=== PATIENT | male | born 1985 | race Caucasian/White ===

== ENCOUNTER 2016-09-27 11:09 | Inpatient (IN) | payer OTHER ==
[~2016-09-27] VITALS: Ht 175.3 cm; Wt 56.8 kg
[2016-09-27 13:40] VITALS: BMI 18.5
[2016-09-27 13:42] VITALS: BP 122/79; PULSE 70; TEMP 36.6; BMI 18.5
[2016-09-27 14:51] VITALS: BMI 18.5
[2016-09-27 14:52] VITALS: BP 122/79; TEMP 36.6
[2016-09-27 14:59] VITALS: Ht 175.3 cm; Wt 56.8 kg
[2016-09-27] MEDS ORDERED: NURSING VERBAL MED ORDER ONE (15:00)
[2016-09-27] MEDS ORDERED: OXYCODONE/ACETAMINOPHEN 5-325 TAB PO PRN (15:15)
[2016-09-27 15:19] VITALS: BP 125/78; PULSE 67; TEMP 36.5; O2SAT 99
[2016-09-27] MEDS ORDERED: MoRPHine SULFATE 2 MG/ML CARP IV PRN (16:30)
--- NOTE | 2016-09-27 17:24 | HISTORY & PHYSICAL EXAMINATION ---
DATE OF ADMISSION: 09/27/2016 REASON FOR ADMISSION: Spontaneous right pneumothorax with prolonged air leak. 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 States he averages about a pack a day. The patient noted pain on 09/24/2016 in his right chest, it awakened him from sleep. He went to the Emergency Room and was found out 100% pneumothorax and a chest tube was placed. He has a large persistent air leak and he was transferred up to my service from [facility] by Dr. Denis. He was on room air with good saturations. He does have a significant air leak. His x-ray shows expansion of his lung. I met the patient and his family at the bedside and we had a long discussion. I believe he needs a thoracoscopic evaluation. We had a long talk about this and about his cigarette smoking. We will plan on taking him to the operating room tomorrow for a thoracoscopic evaluation, bleb resection, possible pleurectomy. PAST MEDICAL HISTORY: 1. Cigarette smoking (at least 16-pack years). 2. Right cholesteatoma as a child. PAST SURGICAL HISTORY: 1. Resection of cholesteatoma right postauricular area as a child. MEDICATIONS: None. ALLERGIES: No known drug allergies. SOCIAL HISTORY: The patient lives with his girlfriend. They actually live with his grandmother who is in her 90s. The patient smokes a pack of cigarettes a day. States he really does not use ETOH or drugs. 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 FAMILY MEDICAL HISTORY: The patient's grandmother is in her 90s and is "slowing down." His parents are in their 50s and are healthy. He has siblings who are healthy. He has no children. REVIEW OF SYSTEMS: He states his weight has been the same. He is a very thin individual. This is the first time that has ever happened to him. He was short of breath when it occurred. He denies night sweats, fevers or productive cough. He had some chest pain on the right. Denies palpitations. He has had no GI or complaints. His teeth are in very poor repair. He has had no wound breakdowns. He does have decreased hearing in his right ear, but this has been chronic since his cholesteatoma resection. He has had no neurologic events. PHYSICAL EXAMINATION: GENERAL: 5 feet 9 inch, 125 pounds white male. He is awake and alert. HEENT: Extraocular movements are intact. He does have a body piercing in his left eye and his ear and his left lower lip. There is no evidence of infection. He has no nasolabial flattening. He has no nasal polyps. His teeth are in horrible repair. He has a few teeth left and they all have caries. Tongue is midline. NECK: Supple. I detect no supraclavicular or cervical lymphadenopathy, or neck vein distention. LUNGS: He has got some wheezing on the right. He is moving air well bilaterally. HEART: Regular rate and rhythm in his heart. ABDOMEN: Flat, soft, nontender. No evidence of aortic aneurysm or hepatomegaly or ascites. He has got good pedal pulses. He has no peripheral edema. He has no joint effusions. NEUROLOGIC: He is completely intact. DATA: I reviewed his chest x-ray, he had 100% pneumothorax when he came to [facility] on 09/24/2016. He has full expansion with his chest tube and has a large air leak. ASSESSMENT AND PLAN: Persistent air leak. We will take the patient to the operating room tomorrow for a thoracoscopic evaluation. I am going to check a CT scan tonight. CANDY
[2016-09-27 17:48] LABS: HEMATOCRIT 46.9 % (42-52); MEAN CELL VOLUME 87.2 fL (80-100); MEAN CORPUSCULAR HEMOGLOBIN 29.9 pg (25-34); MEAN CORPUSCULAR HGB CONC 34.3 g/dl (32-36); MEAN PLATELET VOLUME 9.5 fL (7.4-10.4); PLATELET COUNT 257 K/uL (130-400); RED BLOOD COUNT 5.38 M/uL (4.7-6.1); WHITE BLOOD COUNT 10.25 K/uL (4.8-10.8)
[2016-09-27 18:04] LABS: PROTHROMBIN TIME (PATIENT) 10.3 SECONDS (9.0-12.0)
[2016-09-27 18:13] LABS: CREATININE 0.97 mg/dl (0.60-1.40)
[2016-09-27] MEDS ORDERED: ENOXAPARIN 40 MG/0.4 ML SYR SQ SCH (18:30)
[2016-09-27 18:59] VITALS: O2SAT 99
[2016-09-27] MEDS: OXYCODONE/ACETAMINOPHEN 5-325 TAB PO PRN (19:36)
--- NOTE | 2016-09-27 21:02 | DIAGNOSTIC IMAGING REPORT ---
CHEST CT WITHOUT CONTRAST CT DOSE: 222.51 mGy.cm HISTORY: spontaneous right pneumothorax - pre-op TECHNIQUE: Multiaxial CT images of the chest were performed without contrast. COMPARISON: None. FINDINGS: Small right-sided pneumothorax. Right-sided chest tube terminates within the upper lung zone appears to be in good position. Small amount of right chest wall subcutaneous emphysema. Multiple biapical blebs seen within the lung apices. Dominant right apical bleb measures 1.4 cm and the dominant left apical bleb measures 1.8 cm. Multiple additional peripheral blebs seen within the bilateral upper lobes. The central airways are patent. No fractures within the visualized osseous structures. No mediastinal or hilar lymphadenopathy. There may be trace pneumomediastinum adjacent to the distal esophagus. The visualized liver and spleen are unremarkable. The heart is normal in size. Right lower lobe posterior densities favor atelectasis. IMPRESSION: 1. Small right-sided pneumothorax. The right chest tube terminates in the upper lung zone and appears in good position. 2. Multiple blebs seen throughout the bilateral upper lobes. 3. There is a trace amount of pneumomediastinum adjacent to the distal esophagus. This is likely due to the pneumothorax. Electronically signed by: Brian Allan M.D. 09/27/2016 5:26 PM Dictated Date/Time: 09/27/2016 5:21 PM
[2016-09-27 23:25] VITALS: BP 122/73; PULSE 64; TEMP 36.5; O2SAT 99
[2016-09-28] VITALS (8 sets, daily range): BP systolic 111–126; BP diastolic 74–83; PULSE 64–93; TEMP 36.3–36.6; O2SAT 94–100
[2016-09-28] MEDS: OXYCODONE/ACETAMINOPHEN 5-325 TAB PO PRN ×3 (00:12→23:14)
[2016-09-28] MEDS: D5W AND 1/2NSS 1,000 ML IV SCH ×2 (00:12→10:21)
--- NOTE | 2016-09-28 07:52 | History & Physical Bridge Note ---
H&P Re-Evaluation Bridge Note: I have examined the patient, reviewed the History & Physical and in the interval since the performance of the History & Physical I have noted the following changes of clinical significance: I had a long talk with the patient and his significant other. The CT Scan shows localized apical blebs. He should respond well to an apical wedge resection. Risks and benefits discussed. Will take to OR later today.
[2016-09-28] MEDS ORDERED: KETOROLAC TROMETHAMINE 30 MG/ML VIAL IV PRN (08:00)
[2016-09-28] MEDS ORDERED: ONDANSETRON INJ 2 MG/ML 2 ML VIAL IV PRN (09:45)
[2016-09-28] MEDS ORDERED: FENTANYL CITRATE INJ 50 MCG/1 ML 2 ML VIAL IV PRN (09:45)
[2016-09-28] MEDS ORDERED: EpHEDrine SULFATE INJ 50 MG/ML AMP IV PRN (09:45)
[2016-09-28] MEDS ORDERED: HYDROmorphone INJ 1 MG/ML SYR IV PRN (09:45)
[2016-09-28] MEDS ORDERED: ATROPINE SULFATE 0.1 MG/ML 5ML SYR IV PRN (09:45)
[2016-09-28] MEDS ORDERED: ROCURONIUM BROMIDE 10 MG/ML 5 ML VIAL ONE (12:35)
[2016-09-28] MEDS ORDERED: DEXAMETHASONE SOD INJ 4 MG/ML VIAL ONE (12:35)
[2016-09-28] MEDS ORDERED: LIDOCAINE HCL 2% 2 ML VIAL (20MG/ML) ONE (12:35)
[2016-09-28] MEDS ORDERED: GLYCOPYRROLATE INJ 0.2 MG/ML VIAL ONE (12:35)
[2016-09-28] MEDS ORDERED: PROPOFOL IV EMULSION 10 MG/ML 20 ML VIAL IV ONE (12:35)
[2016-09-28] MEDS ORDERED: NEOSTIGMINE METHYLSULFATE 5 MG/5 ML SYR ONE (12:35)
[2016-09-28] MEDS ORDERED: ONDANSETRON INJ 2 MG/ML 2 ML VIAL ONE (12:35)
[2016-09-28] MEDS ORDERED: FENTANYL CITRATE INJ 50 MCG/1 ML 2 ML VIAL ONE ×2 (12:36→13:59)
[2016-09-28] MEDS ORDERED: MIDAZOLAM HCL 1 MG/ML 2ML VIAL ONE (12:36)
[2016-09-28] MEDS ORDERED: BUPIVACAINE LIPOSOME 1/3% 266 MG/20 ML VIAL INFIL ONE (12:42)
[2016-09-28] MEDS ORDERED: SODIUM CHLORIDE 0.9% PF 50 ML VIAL ONE (12:42)
--- NOTE | 2016-09-28 15:15 | Anesthesiology Progress Note ---
Anesthesia Post Op Note Date & Time Sep 28, 2016 at 15:15 Vital Signs Pain Intensity: 2 Vital Signs Past 12 Hours Date Time Temp Pulse Resp B/P (MAP) Pulse Ox O2 Delivery O2 Flow Rate FiO2 09/28/16 15:11 74 14 09/28/16 15:11 74 14 111/74 94 09/28/16 15:06 63 12 112/68 95 09/28/16 15:06 62 09/28/16 15:01 67 15 113/70 95 09/28/16 15:01 68 15 09/28/16 15:00 112/67 09/28/16 15:00 Nasal Cannula 4 09/28/16 14:46 36.5 72 16 114/70 97 Mask 10 09/28/16 12:58 36.4 74 16 126/83 (97) 98 Room Air 09/28/16 07:35 Room Air 09/28/16 07:23 36.5 64 16 120/74 (89) 96 Room Air Notes Mental Status: alert / awake / arousable, participated in evaluation Pt Amnestic to Procedure: Yes Nausea / Vomiting: adequately controlled Pain: adequately controlled Airway Patency, RR, SpO2: stable & adequate BP & HR: stable & adequate Hydration State: stable & adequate Anesthetic Complications: no major complications apparent
--- NOTE | 2016-09-28 15:17 | [facility] Operative Report ---
Operative Report Operative Date Sep 28, 2016. Pre-Operative Diagnosis Spontaneous right pnemothorax Post-Operative Diagnosis Same Procedure(s) Performed Thoracoscopic right apical bleb resection Surgeon Dr. Langley Transplant Rn Surgeon(s) none Estimated Blood Loss 5 ML Findings Apical Blebs Specimens a. right upper lobe apex -sent fresh 1213 Drains One 16 nepalese chest tube Anesthesia GA Disposition Recovery Room / PACU Indications Spontaneous right pneumothorax with persistent air leak Description of Procedure Patient was brought the operating room and general anesthesia was induced at the single-lumen endotracheal tube placed. Patient is placed in the left lateral decubitus position. The right chest tube was removed and very low volumes were used is on the ventilator. Patient is prepped and draped in sterile fashion. After appropriate prophylactic antibiotics in August given an appropriate time-out was called a 5 millimeter trocar was placed to the prior chest tube site. A 5 millimeters 0 degree scope was placed through this trocar. There were no adhesions. It was obvious the apex had bullous disease. Another 5 millimeter trocar was placed posteriorly below the tip of the scapula. A 12 millimeter port was placed at about the 7th interspace anteriorly. With the use of graspers all 3 lobes were closely inspected. The fissures were complete. There were no blebs noted in the superior segment of the lower lobe. There was a ruptured bleb where there was obvious air leaking. With the use of Endo- ELINA staplers and generous wedge resection of the apex was performed. The chest was filled with warm saline and patient was placed in the Trendelenburg position. There was no air leak noted. 266 milligrams of liposomal bupivacaine was reconstituted with 60 cc total of normal saline. Under thoracoscopic guidance an intracostal block was performed by injecting above each rib from the 2nd to 11th rib medially. A 16 Pakistani chest tube was placed in the anterior thoracoscopy port and the muscle closed around it with 0 Vicryl. Two 0 silk was used to hold this in place. The 2 ports were then closed with 0 Vicryl x1 state she each to close the muscle layer. Four micro is uses close the skin of each incision. Antimicrobial dressings were placed. Patient was awakened without difficulty and transported to the post anesthesia care unit in stable condition. Blood loss was negligible. I attest to the content of the Intraoperative Record and any orders documented therein. Any exceptions are noted below.
--- NOTE | 2016-09-28 15:57 | DIAGNOSTIC IMAGING REPORT ---
CHEST ONE VIEW PORTABLE CLINICAL HISTORY: s/p VATS COMPARISON STUDY: Chest CT September 27, 2016. FINDINGS: Interval postoperative findings are noted within the right lung apex. A large right pneumothorax is noted. This likely occupies at least 50% of the right hemithorax. Superior pleural separation is 8.4 cm. Right chest tube is in place. Subcutaneous gas within the right chest wall is noted. IMPRESSION: Large right pneumothorax. Right chest tube in place. Interval postoperative findings within the right lung apex. Findings discussed with Dr. Langley at time of dictation. Electronically signed by: Bebo Berry M.D. 09/28/2016 3:56 PM Dictated Date/Time: 09/28/2016 3:27 PM
[2016-09-28] MEDS ORDERED: LIDOCAINE HCL 1% 20 ML VIAL ONE (17:44)
--- NOTE | 2016-09-28 18:11 | Surgery Progress Note ---
Surgery Progress Note Date of Service Sep 28, 2016. Objective Vital Signs: Date Time Temp Pulse Resp B/P (MAP) Pulse Ox O2 Delivery O2 Flow Rate FiO2 09/28/16 17:22 36.3 92 16 122/78 (93) 95 Nasal Cannula 4.0 09/28/16 16:20 94 Nasal Cannula 4.0 09/28/16 16:08 76 16 95 09/28/16 16:08 78 16 09/28/16 16:06 106/73 09/28/16 16:03 76 18 95 09/28/16 16:03 77 18 09/28/16 16:01 107/70 09/28/16 15:58 71 10 96 09/28/16 15:58 71 10 09/28/16 15:56 105/72 09/28/16 15:53 77 10 09/28/16 15:53 79 10 95 09/28/16 15:51 112/69 09/28/16 15:48 64 15 09/28/16 15:48 63 15 96 09/28/16 15:46 111/70 09/28/16 15:43 66 15 09/28/16 15:43 66 15 96 09/28/16 15:41 108/66 09/28/16 15:38 64 13 09/28/16 15:38 65 13 95 09/28/16 15:36 109/70 09/28/16 15:33 65 16 95 09/28/16 15:33 65 09/28/16 15:31 113/63 09/28/16 15:28 66 13 95 09/28/16 15:28 65 13 09/28/16 15:27 36.5 09/28/16 15:26 108/70 09/28/16 15:22 67 16 95 09/28/16 15:22 68 16 09/28/16 15:21 102/77 09/28/16 15:17 86 13 09/28/16 15:17 85 13 94 09/28/16 15:16 110/67 09/28/16 15:12 69 14 09/28/16 15:12 68 14 94 09/28/16 15:11 74 14 09/28/16 15:11 74 14 111/74 94 09/28/16 15:06 63 12 112/68 95 09/28/16 15:06 62 09/28/16 15:01 67 15 113/70 95 09/28/16 15:01 68 15 09/28/16 15:00 112/67 09/28/16 15:00 Nasal Cannula 4 09/28/16 14:46 36.5 72 16 114/70 97 Mask 10 09/28/16 12:58 36.4 74 16 126/83 (97) 98 Room Air 09/28/16 07:35 Room Air 09/28/16 07:23 36.5 64 16 120/74 (89) 96 Room Air 09/28/16 00:06 Room Air 09/27/16 23:25 36.5 64 16 122/73 (89) 99 Room Air 09/27/16 18:59 99 Room Air Patient's chest tube dislodged. I re-prepped and under sterile conditions, re- inserted chest tube. He tolerated well. Resutured. Will recheck CXR in am.
[2016-09-28] MEDS ORDERED: NURSING VERBAL MED ORDER ONE (18:45)
[2016-09-29 03:02] VITALS: BP 106/56; PULSE 69; TEMP 36.3; O2SAT 96
[2016-09-29 07:09] VITALS: BP 126/61; PULSE 78; TEMP 36.9; O2SAT 99
[2016-09-29 07:45] VITALS: O2SAT 99
[2016-09-29] MEDS: OXYCODONE/ACETAMINOPHEN 5-325 TAB PO PRN ×2 (07:53→12:52)
--- NOTE | 2016-09-29 08:11 | Anesthesiology Progress Note ---
Anesthesia Post Op Note Date & Time Sep 29, 2016 at 08:10 Vital Signs Vital Signs Past 12 Hours Date Time Temp Pulse Resp B/P (MAP) Pulse Ox O2 Delivery O2 Flow Rate FiO2 09/29/16 07:45 99 Room Air 09/29/16 07:09 36.9 78 16 126/61 (82) 99 2.0 09/29/16 03:02 36.3 69 16 106/56 (73) 96 Nasal Cannula 2.0 09/28/16 23:20 Nasal Cannula 2.0 09/28/16 23:00 36.6 90 16 111/80 (90) 98 Room Air Notes Mental Status: alert / awake / arousable, participated in evaluation Pt Amnestic to Procedure: Yes Nausea / Vomiting: adequately controlled Pain: adequately controlled Airway Patency, RR, SpO2: stable & adequate BP & HR: stable & adequate Hydration State: stable & adequate Anesthetic Complications: no major complications apparent
--- NOTE | 2016-09-29 08:58 | DIAGNOSTIC IMAGING REPORT ---
CHEST ONE VIEW PORTABLE CLINICAL HISTORY: s/p VATS COMPARISON STUDY: Chest radiograph September 28, 2016. FINDINGS: A chest tube projects over the mid to lower right hemithorax. The tip of the chest tube appears to project over the lateral right chest wall. There is subcutaneous gas within the right chest wall and lower neck. A moderate right pneumothorax has significantly decreased in size since exam of September 28, 2016. There has been interval development of a 3.9 cm subpleural right apical opacity adjacent to the suture line. Left lung is clear. Cardiac size is normal. IMPRESSION: 1. Tip of right-sided chest tube projects over the lateral right chest wall. The tip is extrathoracic. 2. Moderate right pneumothorax which has significantly decreased in size since prior exam. 3. Interval development of a 3.9 cm right apical subpleural opacity adjacent to the suture line which is likely postsurgical. Electronically signed by: Bebo Berry M.D. 09/29/2016 8:57 AM Dictated Date/Time: 09/29/2016 7:35 AM
[2016-09-29 12:00] VITALS: BP 136/73; PULSE 74; TEMP 36.7; O2SAT 98
[2016-09-29] MEDS ORDERED: ULT50X PO (13:49)
--- NOTE | 2016-09-29 13:52 | DIAGNOSTIC IMAGING REPORT ---
SINGLE VIEW CHEST CLINICAL HISTORY: Status post chest tube removal. FINDINGS: An AP, portable, upright chest radiograph is compared to study performed earlier the same day 09/29/2016. Correlation is made with chest CT dated 09/27/2016. The examination is degraded by portable technique and patient rotation. The cardiomediastinal silhouette is unremarkable. A right-sided chest tube has been removed. There is a small residual right apical pneumothorax, unchanged from earlier today. A 3.8 cm density within the atelectatic right upper lobe is likely postsurgical. The left lung is clear. No left-sided pneumothorax is seen. The bony thorax is grossly intact. Subcutaneous emphysema is noted along the right chest wall and in the right lower neck. IMPRESSION: 1. A left-sided chest tube has been removed. A right apical pneumothorax is unchanged from earlier today. 2. A density within the atelectatic right upper lung is likely on a postoperative basis. 3. The left lung is clear. Electronically signed by: Larry Sorto M.D. 09/29/2016 1:50 PM Dictated Date/Time: 09/29/2016 1:46 PM
--- NOTE | 2016-09-29 13:53 | Discharge Instructions ---
Discharge Instructions Date of Service Sep 29, 2016. Admission Reason for Admission: Spontaneous Pneumothroax Discharge Discharge Diagnosis / Problem: Same Discharge Goals Goal(s): Decrease discomfort (Use Tramadol or Tylenol as needed.) Activity Recommendations Activity Limitations: as noted below Lifting Limitations: gradually increase as tolerated Exercise/Sports Limitations: gradually increase as tolerated May Resume Sexual Activity: when tolerated Shower/Bathe: may shower/bathe in 3 days Driving or Machine Use: no limitations Do not get wound wet for 3 days . Instructions / Follow-Up Instructions / Follow-Up My office will call you and make appointment for you to see me in one week with a chest xray. Current Hospital Diet Patient's current hospital diet: Regular Diet Discharge Diet Recommended Diet: Regular Diet Procedures Procedures Performed: Right video assisted thoracoscopy, bleb resection right upper lobe Pending Studies Studies pending at discharge: yes List of pending studies: Pathology Medical Emergencies . Who to Call and When: Medical Emergencies: If at any time you feel your situation is an emergency, please call 911 immediately. . Non-Emergent Contact Non-Emergency issues call your: Primary Care Provider Call Non-Emergent contact if: temperature is above 101.5 . "Provider Documentation" section prepared by Emil Langley. . VTE Core Measure Inpt VTE Proph given/why not?: Enoxaparin (Lovenox)SQ, SCD's
[2016-09-29 14:31] VITALS: BP 136/73; PULSE 74; TEMP 36.7; O2SAT 98
--- NOTE | 2016-10-01 16:19 | Discharge Summary ---
Discharge Summary Date of Service Sep 29, 2016. Discharge Summary This 30-year-old male with history of cigarette smoking suffered a spontaneous pneumothorax on 09/24/2016. He was transferred to my service on 09/27/2016 from [facility]. I performed a CT scan and indeed he did have bullous disease of his right upper lobe. The following day on 09/28/2016 the patient was taken to the operating room where I performed and uncomplicated thoracoscopic bleb resection of his right upper lobe. He had no air leak after surgery. His chest tube became dislodged overnight. He had a fair-sized pneumothorax but I removed the chest tube as it was not functioning and he had a much smaller pneumothorax. He was stable on room air is 99% sats. He is not leaking air. This pneumothorax will resolve and I assured him of that. He was discharged today on 09/21/2016. I'll see him back in the office next week with a chest x-ray. He had no pain and his incisions were all clean.
== END 2016-09-29 14:53 | disposition home or self-care (01) | DRG 164 ==
LOC: C.MSN 12:41
PROVIDERS: ADMIT Surgery; ATTEND Surgery
PROC: 0BBC4ZZ Excision of Right Upper Lung Lobe, Percutaneous Endoscopic Approach (ICD-10-PCS; principal; 2016-09-28 13:30)
DX: J93.83 Other pneumothorax (principal); T85.628A Displacement of other specified internal prosthetic devices, implants and grafts, initial encounter; J93.82 Other air leak; J43.9 Emphysema, unspecified; Z87.891 Personal history of nicotine dependence